=== PATIENT | female | born 2000 | race Caucasian/White ===

== ENCOUNTER 2022-05-26 20:20 | Emergency (ER) | payer OTHER ==
[2022-05-26 20:39] VITALS: BP 107/71; PULSE 95; RESP 19; TEMP 98.2; BMI 18.3
[2022-05-26 22:33] LABS: EPI CELLS >36 /uL (0-25.1); HYALINE CASTS 1 /uL (0-3.1); PH,URINE 5.5 (5.0-8.0); URINE APPEARANCE CLEAR; URINE BACTERIA 1303 /uL (0-1359); URINE BILIRUBIN NEGATIVE (NEGATIVE); URINE COLOR YELLOW; URINE GLUCOSE (UA) NEGATIVE (NEGATIVE); URINE KETONE NEGATIVE (NEGATIVE); URINE LEUK ESTERASE 2+ (NEGATIVE); URINE NITRITE NEGATIVE (NEGATIVE); URINE PROTEIN NEGATIVE (NEGATIVE); URINE RBC 11 /uL (0-23.9); URINE UROBILINOGEN 0.2 mg/dL (0.2-1.0); URINE WBC 95 /uL (0-25.8)
[2022-05-26 22:34] LABS: HCG,QUALITATIVE URINE Negative
[2022-05-26 22:35] LABS: BASO % 0.6 % (0-2.0); EOS % 0.2 % (0-4.5); HEMOGLOBIN 13.4 GM/dL (10.7-15.3); MCH 29.3 pg (25.7-33.7); MCHC 34.5 g/dl (32.0-36.0); MEAN PLT VOLUME 7.8 fl (7.5-11.1); MONO % 8.9 % (3.8-10.2); NEUT % 63.3 % (42.8-82.8); PLATELET COUNT 272 10^3/uL (134-434); RBC 4.58 M/mm3 (3.60-5.2); RDW 12.9 % (11.6-15.6); WHITE BLOOD COUNT 9.7 K/mm3 (4.0-10.0)
[2022-05-26] MEDS ORDERED: LACTATED RINGERS SOLUTION 1000 ML INFUS.BAG IV ONE (22:38)
[2022-05-26] MEDS ORDERED: MAG HYDROX/AL HYDROX/SIMETH 30 ML UNIT-DOSE CUP PO ONE (22:38)
[2022-05-26] MEDS ORDERED: ACETAMINOPHEN 1000 MG/100 ML BAG IVPB ONE (22:38)
[2022-05-26] MEDS ORDERED: FAMOTIDINE 20 MG/50 ML IVPB 20 MG/50 ML MG IVPB ONE (22:38)
[2022-05-26] MEDS ORDERED: CEFTRIAXONE 1 GM in DEXTROSE 5%-WATER - 100 ML IVPB ONE (22:39)
[2022-05-26] MEDS ORDERED: CEFTRIAXONE 1 GM/50 ML BAG ONE (22:42)
[2022-05-26 22:59] LABS: CALCIUM 9.7 mg/dL (8.5-10.1)
[2022-05-26 23:00] LABS: ALBUMIN 4.4 g/dl (3.4-5.0); BLOOD UREA NITROGEN 17.8 mg/dL (7-18)
[2022-05-26 23:03] LABS: CREATININE 1.2 mg/dL (0.55-1.3)
[2022-05-26 23:04] LABS: BILIRUBIN,TOTAL 0.4 mg/dL (0.2-1); TOT PROT 8.4 g/dl (6.4-8.2)
== END 2022-05-27 00:23 | disposition home or self-care (01) ==
LOC: JER 20:20
PROC: 3E033GC Introduction of Other Therapeutic Substance into Peripheral Vein, Percutaneous Approach (ICD-10-PCS; principal; 2022-05-26)
PROC: 3E03329 Introduction of Other Anti-infective into Peripheral Vein, Percutaneous Approach (ICD-10-PCS; 2022-05-26)
PROC: 3E0333Z Introduction of Anti-inflammatory into Peripheral Vein, Percutaneous Approach (ICD-10-PCS; 2022-05-26)
DX: K21.9 Gastro-esophageal reflux disease without esophagitis (principal)
CPT/HCPCS: 0241U-QW; 36415; 76705-TC; 80053; 81003; 83690; 84703; 85025; 87077; 87086; 99284-25

== ENCOUNTER 2023-05-28 10:39 | Emergency (ER) | payer OTHER ==
[2023-05-28 10:50] VITALS: BP 102/66; PULSE 96; RESP 20; TEMP 97.8; BMI 18.6
[2023-05-28] MEDS ORDERED: SODIUM CHLORIDE 0.9% 500 ML INFUS.BAG IV ONE (10:59)
[2023-05-28 11:49] LABS: POTASSIUM 3.6 mmol/L (3.5-5.1)
[2023-05-28 11:53] LABS: CALCIUM 9.8 mg/dL (8.5-10.1)
[2023-05-28 11:54] LABS: ALBUMIN 3.8 g/dl (3.4-5.0); BLOOD UREA NITROGEN 18.9 mg/dL (7-18)
[2023-05-28 11:57] LABS: CREATININE 0.9 mg/dL (0.55-1.3)
[2023-05-28 11:59] LABS: BILIRUBIN,TOTAL 0.6 mg/dL (0.2-1); TOT PROT 8.1 g/dl (6.4-8.2)
[2023-05-28 12:00] LABS: BASO % 0.7 % (0-2.0); EOS % 0.4 % (0-4.5); HEMATOCRIT 38.3 % (32.4-45.2); LYMPH % 25.7 % (8-40); MCH 28.8 pg (25.7-33.7); MCHC 33.9 g/dl (32.0-36.0); MEAN PLT VOLUME 8.5 fl (7.5-11.1); MONO % 10.2 % (3.8-10.2); PLATELET COUNT 245 10^3/uL (134-434); RBC 4.51 M/mm3 (3.60-5.2); RDW 12.8 % (11.6-15.6); WHITE BLOOD COUNT 8.7 K/mm3 (4.0-10.0)
== END 2023-05-28 13:05 | disposition home or self-care (01) ==
LOC: JER 10:39 → JERFT 10:39 → JER 13:05
DX: L29.8 Other pruritus (principal)
CPT/HCPCS: 36415; 80053; 84703; 85025; 99284-25

== ENCOUNTER 2023-12-01 11:51 | Emergency (ER) | payer OTHER ==
[2023-12-01 12:30] VITALS: BMI 18.6
[2023-12-01 13:41] LABS: HCG,QUALITATIVE URINE Negative
[2023-12-01 13:48] LABS: EPI CELLS 30 /uL (0-25.1); HYALINE CASTS 0 /uL (0-3.1); PH,URINE 5.5 (5.0-8.0); URINE APPEARANCE CLEAR; URINE BACTERIA 346 /uL (0-1359); URINE BILIRUBIN NEGATIVE (NEGATIVE); URINE COLOR YELLOW; URINE GLUCOSE (UA) NEGATIVE (NEGATIVE); URINE KETONE NEGATIVE (NEGATIVE); URINE LEUK ESTERASE TRACE (NEGATIVE); URINE NITRITE NEGATIVE (NEGATIVE); URINE PROTEIN TRACE (NEGATIVE); URINE RBC 6 /uL (0-23.9); URINE UROBILINOGEN 0.2 mg/dL (0.2-1.0); URINE WBC 23 /uL (0-25.8)
[2023-12-01] MEDS ORDERED: IBUPROFEN 400 MG TABLET (FP) PO ONE (14:00)
[2023-12-01] MEDS ORDERED: LIDOCAINE 4% PATCH TP ONE (14:00)
[2023-12-01] MEDS: IBUPROFEN 400 MG TABLET (FP) PO ONE (14:04)
[2023-12-01] MEDS: LIDOCAINE 4% PATCH TP ONE (14:04)
[2023-12-01 15:43] VITALS: BP 100/65; PULSE 82; RESP 18; TEMP 98
[2023-12-01] MEDS ORDERED: LIDOCAINE PATCH REMOVAL MC ONE (22:00)
== END 2023-12-01 16:21 | disposition home or self-care (01) ==
LOC: JERFT 11:51 → JER 11:51 → JERFT 16:21
DX: M54.50 Low back pain, unspecified (principal); X50.1XXA Overexertion from prolonged static or awkward postures, initial encounter
CPT/HCPCS: 81003; 84703; 87086; 99283-25

== ENCOUNTER 2024-08-02 07:22 | Emergency (ER) | payer OTHER ==
[2024-08-02 07:28] VITALS: BP 112/63; PULSE 91; RESP 18; TEMP 98
[2024-08-02] MEDS ORDERED: ACETAMINOPHEN 500 MG TABLET (FP) ONE (08:17)
[2024-08-02] MEDS: ACETAMINOPHEN 500 MG TABLET (FP) PO ONE (08:19)
[2024-08-02 11:43] LABS: HCV DIAGNOSTIC IN-HOUSE W/RFLX NON-REACTIVE (NONREACTIVE); HIV INTERPRETATION NEGATIVE (NEGATIVE)
== END 2024-08-02 08:27 | disposition home or self-care (01) ==
LOC: JERFT 07:22
DX: N76.4 Abscess of vulva (principal)
CPT/HCPCS: 36415; 86803; 87389; 99283-25